=== PATIENT | male | born 1935 | race Caucasian/White ===

== ENCOUNTER → 2020-03-10 09:24 | Outpatient (CLI) | payer MEDICARE ==
[2014-02-18 07:44] VITALS: BMI 31.5
[~2020-03-10 09:24] MED LIST: GLUCOPHAGE500 MG; HUMULIN N100 U/ML INJ; HUMULIN R100 U/ML; HUMULIN R100 U/ML INJ; NORCO 10/325 TA1 TA1 PO
--- NOTE | 2020-03-13 08:56 | EC ---
PATIENT:GELY DUMONT DATE OF SERVICE: 03/10/20 SEX: M MEDICAL RECORD: [id number] DATE OF : 37 LOCATION[facility] AGE OF PATIENT: 85 ADMISSION DATE: 03/10/20 REFERRING PHYSICIAN: INTERPRETING PHYSICIAN: SURAJ GORMAN MD ECHOCARDIOGRAM REPORT ECHO CHARGES 4 ECHO COMPLETE Date: 03/10/20 CLINICAL DIAGNOSIS: HTN/CAD ECHOCARDIOGRAPHIC MEASUREMENTS (adult normal given) AC root (d.<3.7cm) 3.7 cm LV Septum d (<1.2 cm> 1.3 cm Valve Excursion 1.5 cm LV Septum (systole) 1.7 cm Left Atria (s.<4.0cm> 3.9 cm LVPW d(<1.2cm) 1.5 cm RV (d.<2.3cm) 3.8 cm LVPW (sytole) 1.7 cm LV diastole(<5.6CM) 5.3 cm MV E-F(>70mm/sec) cm LV systole 3.6 cm LVOT Diameter 1.7 cm MV exc.(>10mm) 0.90 cm Est.ejection fraction (50-75%) % DOPPLER: LVIT cm/sec A 89.0 cm/sec E 58.0 cm/sec LA cm/sec RVSP 34 mmHg LVOT 132 cm/sec AOP1/2T m/s Asc. Ao 184 cm/sec RVOT 88 cm/sec RA cm/sec PA 159 cm/sec AV Gradient Peak 13.56mmHg AV Mean 7.78 mmHg AV Area 1.6 cm MV Gradient Peak 7.07 mmHg MV Mean 2.27 mmHg MV Area cm COMMENTS: Bookbinder Apprentice: 2 RADHA BLEDSOE Airline Reservationist: 3 Dr. Santana TAPE# PACS Pericardial Effusion N DATE OF SERVICE: Adequate 2D, color flow imaging, spectral Doppler, and M-Mode. Mild LVH. LV internal dimensions are normal. Wall motion is normal. EF is greater than or equal to 55%. Aortic valve is sclerotic with minimal elevated velocities. Peak gradient of 30 mmHg putting this is a mild range. Left atrium was normal at 3.9 cm. Mitral valve shows no prolapse. Trivial MR. Right-sided grossly normal. Trivial TR. ECHOCARDIOGRAM REPORT [id number] GELY DUMONT TRANSINT:[id number] Voice Confirmation ID: [id number] DOCUMENT ID: [id number] SURAJ GORMAN MD at 0856 CC: [id number] DICTATION DATE: 03/10/201422 STRUCTURAL STEEL ENGINEER: 03/10/201926 DEP CLI 03/10/20 [place] [id number] [place] [id number]
== END | disposition home or self-care (01) ==
LOC: D.HCCECHO 09:24
PROVIDERS: ATTEND Internal Medicine Interventional Cardiology
DX: I10 Essential (primary) hypertension (principal)

== ENCOUNTER 2021-01-01 10:59 | Inpatient (IN) | payer MEDICARE ==
[2021-01-01] VITALS (10 sets, daily range): BP systolic 121–167; BP diastolic 62–94; BMI 26.2
[~2021-01-01] VITALS: Ht 175.3 cm; Wt 86.8 kg
[2021-01-01 11:40] LABS: BASOPHILS 0.6 % (0-2); EOSINOPHILS 1.3 % (0-7); HEMATOCRIT 41.5 % (42.0-54.0); HEMOGLOBIN 14.4 g/dL (13.5-17.5); IMMATURE GRANULOCYTES 0.1 % (0-5); LYMPHOCYTE ABS# 1.83 10x3/uL (1.32-3.57); LYMPHOCYTES 23.5 % (15-50); MCH 29.1 pg (26.0-34.0); MCHC 34.7 g/dL (31.0-37.0); MCV 83.8 fL (80.0-100.0); MEAN PLATELET VOLUME 13.3 fL (7.4-10.4); MONOCYTES 4.5 % (2-11); NEUTROPHIL ABS# 5.44 10x3/uL (1.78-5.38); PLATELET COUNT 200 10x3/uL (130-400); RBC 4.95 10x6/uL (4.20-6.10); WBC 7.8 10x3/uL (4.8-10.8)
[2021-01-01 11:54] LABS: BILIRUBIN - TOTAL 1.14 mg/dL (0.2-1.3); CARBON DIOXIDE 23.5 mmol/L (21.0-32.0); CREATININE - SERUM 1.6 mg/dL (0.6-1.3); POTASSIUM - SERUM 4.9 mmol/L (3.5-5.1); PROTEIN - SERUM 7.4 g/dL (6.4-8.2)
[2021-01-01 11:56] LABS: ANION GAP 16.4 mmol/L (8-16)
[2021-01-01 13:26] LABS: BILIRUBIN NEGATIVE (NEGATIVE); KETONE MODERATE mg/dL (NEGATIVE); NITRITE NEGATIVE (NEGATIVE); UROBILINOGEN NORMAL mg/dL (< 2)
[2021-01-01 16:31] LABS: ANION GAP 15.2 mmol/L (8-16); CALCIUM 9.3 mg/dL (8.5-10.1); CARBON DIOXIDE 27.2 mmol/L (21.0-32.0); CREATININE - SERUM 1.4 mg/dL (0.6-1.3)
[2021-01-01 16:37] LABS: POTASSIUM - SERUM 3.4 mmol/L (3.5-5.1)
--- NOTE | 2021-01-01 16:50 | NUR ---
REC'D PT TO ICU FROM ER. INSULIN GTT INFUSING AT 17CC/HR. FSBS NOW 201. MULTIPLIER USED DKA PROTOCOL. DEC GTT TO 4.2. BMP DRAWN. NS AT 125. PT CONFUSED AND GEENA AT LINES AND IV. SOFT BUE RESTRAINTS ORDERED. ALL MONITORING EQUIPMENT ATTACHED AND ALARMS SET. VSS. NSR ON CM.
[2021-01-01 20:08] LABS: CALCIUM 9.2 mg/dL (8.5-10.1); CARBON DIOXIDE 26.8 mmol/L (21.0-32.0); CREATININE - SERUM 1.1 mg/dL (0.6-1.3); POTASSIUM - SERUM 3.8 mmol/L (3.5-5.1)
[2021-01-02] VITALS (20 sets, daily range): BP systolic 98–147; BP diastolic 54–88; Ht 175.3 cm; Wt 86.8 kg
[2021-01-02 03:54] LABS: BASOPHILS 0.6 % (0-2); EOSINOPHILS 3.3 % (0-7); HEMATOCRIT 36.9 % (42.0-54.0); HEMOGLOBIN 12.7 g/dL (13.5-17.5); IMMATURE GRANULOCYTES 0.1 % (0-5); LYMPHOCYTE ABS# 2.92 10x3/uL (1.32-3.57); LYMPHOCYTES 36.6 % (15-50); MCH 28.3 pg (26.0-34.0); MCHC 34.4 g/dL (31.0-37.0); MCV 82.2 fL (80.0-100.0); MEAN PLATELET VOLUME 12.7 fL (7.4-10.4); MONOCYTES 7.6 % (2-11); NEUTROPHIL ABS# 4.13 10x3/uL (1.78-5.38); NEUTROPHILS 51.8 % (40-80); PLATELET COUNT 192 10x3/uL (130-400); RBC 4.49 10x6/uL (4.20-6.10); RDW 11.7 % (11.5-14.5)
[2021-01-02 04:26] LABS: ALBUMIN 3.2 g/dL (3.4-5.0); ANION GAP 8.8 mmol/L (8-16); BILIRUBIN - TOTAL 0.76 mg/dL (0.2-1.3); CALCIUM 8.3 mg/dL (8.5-10.1); CARBON DIOXIDE 27.7 mmol/L (21.0-32.0); CREATININE - SERUM 1.1 mg/dL (0.6-1.3); MAGNESIUM - SERUM 1.8 mg/dL (1.8-2.4); PHOSPHOROUS 2.3 mg/dL (2.5-4.9); POTASSIUM - SERUM 3.5 mmol/L (3.5-5.1); PROTEIN - SERUM 6.1 g/dL (6.4-8.2)
--- NOTE | 2021-01-02 04:53 | NUR ---
PATIENT OFF INSULIN DRIP SINCE 2029, TOLERATING ORAL FLUIDS. INCONTIENT, LARGE AMOUNT OF JAMIE URINE VOID, INCONTINENCE BRIEF CHANGED.
--- NOTE | 2021-01-02 07:30 | NUR ---
PT LAYING IN BED RESTING, DENIES PAIN AT THIS TIME, FORGETFULL AT TIMES, NO NEEDS VOICED, WILL MONITOR
--- NOTE | 2021-01-02 08:10 | NUR ---
BREAKFAST TRAY SERVED, PT SITTING UP FEEDING SELF
[2021-01-02 10:43] LABS: CALC OSMOLALITY 278 mosm/kg (275-300); CALCIUM 9.3 mg/dL (8.5-10.1); CARBON DIOXIDE 27.9 mmol/L (21.0-32.0); CHLORIDE - SERUM 101 mmol/L (98-107); GLUCOSE 221 mg/dL (74-106); POTASSIUM - SERUM 4.3 mmol/L (3.5-5.1); SODIUM 135 mmol/L (136-145); UREA NITROGEN 17 mg/dL (7-18); eGFR NON AFRICAN AMERICAN 76 mL/min (90-120)
--- NOTE | 2021-01-02 12:00 | NUR ---
PT SITTING UP IN CHAIR EATING LUNCH, TOLERATING WELL, CALL LIGHT IN REACH, WILL MONITOR
[2021-01-02 13:46] LABS: ANION GAP 13.6 mmol/L (8-16); CALCIUM 8.4 mg/dL (8.5-10.1); CARBON DIOXIDE 26.4 mmol/L (21.0-32.0); CREATININE - SERUM 1.2 mg/dL (0.6-1.3)
[2021-01-02 16:33] LABS: ANION GAP 11.9 mmol/L (8-16); CALCIUM 8.7 mg/dL (8.5-10.1); CARBON DIOXIDE 27.7 mmol/L (21.0-32.0); CREATININE - SERUM 1.1 mg/dL (0.6-1.3); POTASSIUM - SERUM 4.6 mmol/L (3.5-5.1)
--- NOTE | 2021-01-02 16:45 | NUR ---
DINNER TRAY SERVED, SITTING UP EATING, CALL LIGHT IN REACH, WILL MONITOR
[2021-01-02 20:40] LABS: CALCIUM 8.4 mg/dL (8.5-10.1); CARBON DIOXIDE 26.8 mmol/L (21.0-32.0); CREATININE - SERUM 1.3 mg/dL (0.6-1.3); POTASSIUM - SERUM 4.8 mmol/L (3.5-5.1)
[2021-01-03] VITALS (15 sets, daily range): BP systolic 116–165; BP diastolic 54–92
[2021-01-03 04:51] LABS: BASOPHILS 0.6 % (0-2); EOSINOPHILS 5.1 % (0-7); HEMATOCRIT 37.4 % (42.0-54.0); HEMOGLOBIN 12.7 g/dL (13.5-17.5); IMMATURE GRANULOCYTES 0.2 % (0-5); LYMPHOCYTE ABS# 3.86 10x3/uL (1.32-3.57); MCH 28.2 pg (26.0-34.0); MCV 82.9 fL (80.0-100.0); MEAN PLATELET VOLUME 12.2 fL (7.4-10.4); MONOCYTES 5.8 % (2-11); NEUTROPHIL ABS# 3.39 10x3/uL (1.78-5.38); NEUTROPHILS 41.3 % (40-80); PLATELET COUNT 177 10x3/uL (130-400); RBC 4.51 10x6/uL (4.20-6.10); RDW 11.7 % (11.5-14.5); WBC 8.2 10x3/uL (4.8-10.8)
[2021-01-03 05:07] LABS: CALCIUM 8.2 mg/dL (8.5-10.1); CARBON DIOXIDE 27.6 mmol/L (21.0-32.0); CHLORIDE - SERUM 105 mmol/L (98-107); SODIUM 138 mmol/L (136-145); UREA NITROGEN 17 mg/dL (7-18)
[2021-01-03 05:09] LABS: CALC OSMOLALITY 275 mosm/kg (275-300); CREATININE - SERUM 0.9 mg/dL (0.6-1.3); GLUCOSE 67 mg/dL (74-106); PHOSPHOROUS 3.3 mg/dL (2.5-4.9); POTASSIUM - SERUM 3.7 mmol/L (3.5-5.1); eGFR NON AFRICAN AMERICAN 85 mL/min (90-120)
--- NOTE | 2021-01-03 11:09 | NUR ---
Nutrition Consult/Follow-up: Received consult for diabetic education. Pt was educated yesterday; written information has been provided as well. No questions this AM. Good appetite/PO intake. Denies N/V/C/D. Diet: Diabetic PO intake: 50-75% Wt: 191# (01/03); 177.4# (01/01) Last BM: 01/02 Labs noted: Glu 67, POC Glu 162, A1c 12.9, Ca 8.2, Alb 3.2 Meds noted: Pepcid, Humalog, NS @ 100, electrolyte protocol -Education on carb consistent diet has been provided. Pt v/u. -Encourage PO intake and honor food preferences within diet restrictions. -Monitor wt. -RD follow-up: 01/04
[2021-01-03 12:44] LABS: CALCIUM 8.4 mg/dL (8.5-10.1); CHLORIDE - SERUM 99 mmol/L (98-107); SODIUM 131 mmol/L (136-145); UREA NITROGEN 16 mg/dL (7-18); eGFR NON AFRICAN AMERICAN 76 mL/min (90-120)
[2021-01-03 12:47] LABS: CALC OSMOLALITY 281 mosm/kg (275-300)
[2021-01-03 12:48] LABS: GLUCOSE 430 mg/dL (74-106)
--- NOTE | 2021-01-03 14:07 | NUR ---
REHAB PRESCREENING Rehab referral received and chart reviewed. This patient is a good candidate for acute inpatient rehab. His insurance provider requires prior authorization. He will need and OT evaluation ordered and completed in order to begin this pre-auth. Rehab will continue to follow. Thank you for this referral! Nichelle Ray, DINING ROOM BUSSER Rehab PD
--- NOTE | 2021-01-03 16:28 | NUR ---
Pt transfered to room 2206, report called to nurse and given at notice of Pt in room at bedside.
[2021-01-03 17:06] LABS: CALC OSMOLALITY 279 mosm/kg (275-300); CALCIUM 8.4 mg/dL (8.5-10.1); CARBON DIOXIDE 26.2 mmol/L (21.0-32.0); CHLORIDE - SERUM 98 mmol/L (98-107); POTASSIUM - SERUM 4.6 mmol/L (3.5-5.1); SODIUM 131 mmol/L (136-145); UREA NITROGEN 16 mg/dL (7-18); eGFR NON AFRICAN AMERICAN 76 mL/min (90-120)
[2021-01-03 17:18] LABS: GLUCOSE 381 mg/dL (74-106)
--- NOTE | 2021-01-03 18:26 | NUR ---
PATIENT ARRIVED TO FLOOR AT 1630 VS WNL, AAO, WILL CONTINUE TO MONITOR
[2021-01-03 22:38] LABS: CALCIUM 8.3 mg/dL (8.5-10.1); CARBON DIOXIDE 25.1 mmol/L (21.0-32.0); CREATININE - SERUM 1.1 mg/dL (0.6-1.3); POTASSIUM - SERUM 4.1 mmol/L (3.5-5.1)
--- NOTE | 2021-01-03 23:26 | NUR ---
ON ENTERING ROOM DURING WALKING ROUNDS CHGE OF SHIFT STATES ITS ABOUT TIME SOMEONE CAME IN HERE. WHAT YOU ARE YPU DOING OUT THERE GOOFING OFF EXPLAINED CHANGING SHIFTS STATES GUESS THAT IS GOOD EXCUSE ANY SCD'S ON INCENTIVE SPIROMETER AT BEDSIDE. WILL CONTINUE TO MONITOR FOR ANY CHGES AND FOLLOW CURRENT PLAN OF CARE.2199) JOAQUIN LEPE APN HERE FSBS 335.SLIDING SCALE CHGED TO HIGH SCALE WITH HUMALOG 20UNITS GIVEN ACCORDING TO SL.SCALE WILL CONTINUE TO MONITOR FOR ANY FURTHER CHGES AND FOLLOW CURRENT PLAN OF CARE
[2021-01-04 00:27] VITALS: BP 152/70
--- NOTE | 2021-01-04 03:41 | NUR ---
I have reviewed this patient and I concur with the Shift Assessment completed by the Licensed Practical Nurse today this shift.
[2021-01-04 04:00] VITALS: BP 168/82
[2021-01-04 06:15] LABS: BASOPHILS 0.5 % (0-2); EOSINOPHILS 5.6 % (0-7); HEMATOCRIT 37.2 % (42.0-54.0); HEMOGLOBIN 12.7 g/dL (13.5-17.5); IMMATURE GRANULOCYTES 0.2 % (0-5); LYMPHOCYTE ABS# 2.45 10x3/uL (1.32-3.57); LYMPHOCYTES 38.9 % (15-50); MCH 28.1 pg (26.0-34.0); MCHC 34.1 g/dL (31.0-37.0); MCV 82.3 fL (80.0-100.0); MEAN PLATELET VOLUME 12.9 fL (7.4-10.4); MONOCYTES 8.3 % (2-11); NEUTROPHIL ABS# 2.94 10x3/uL (1.78-5.38); NEUTROPHILS 46.5 % (40-80); PLATELET COUNT 185 10x3/uL (130-400); RBC 4.52 10x6/uL (4.20-6.10); RDW 11.8 % (11.5-14.5); WBC 6.3 10x3/uL (4.8-10.8)
[2021-01-04 06:31] LABS: CALCIUM 8.4 mg/dL (8.5-10.1); CARBON DIOXIDE 25.7 mmol/L (21.0-32.0); CHLORIDE - SERUM 104 mmol/L (98-107); MAGNESIUM - SERUM 1.8 mg/dL (1.8-2.4); PHOSPHOROUS 3.7 mg/dL (2.5-4.9); SODIUM 137 mmol/L (136-145); UREA NITROGEN 12 mg/dL (7-18)
[2021-01-04 06:41] LABS: CALC OSMOLALITY 275 mosm/kg (275-300); CREATININE - SERUM 0.8 mg/dL (0.6-1.3); GLUCOSE 135 mg/dL (74-106); eGFR NON AFRICAN AMERICAN > 90 mL/min (90-120)
[2021-01-04 08:12] VITALS: BP 174/82
[2021-01-04 12:24] VITALS: BP 161/81
--- NOTE | 2021-01-04 13:21 | NUR ---
Nutrition follow-up: Just out of ICU RDN instructed pt on consistent CHO diet on admit Diet order: consistent CHO PO intake ~75% of meals Labs reviewed Wt: 191# Glucose under good control RDN will follow-up: 01/09/21
[2021-01-04 13:29] LABS: CALC OSMOLALITY 273 mosm/kg (275-300); CALCIUM 8.5 mg/dL (8.5-10.1); CARBON DIOXIDE 22.9 mmol/L (21.0-32.0); CHLORIDE - SERUM 100 mmol/L (98-107); CREATININE - SERUM 0.8 mg/dL (0.6-1.3); POTASSIUM - SERUM 4.4 mmol/L (3.5-5.1); SODIUM 131 mmol/L (136-145); UREA NITROGEN 12 mg/dL (7-18); eGFR NON AFRICAN AMERICAN > 90 mL/min (90-120)
[2021-01-04 13:31] LABS: GLUCOSE 301 mg/dL (74-106)
[2021-01-04 17:04] VITALS: BP 154/80
[2021-01-04 17:15] LABS: CALC OSMOLALITY 274 mosm/kg (275-300); CALCIUM 8.9 mg/dL (8.5-10.1); CARBON DIOXIDE 25.1 mmol/L (21.0-32.0); CHLORIDE - SERUM 102 mmol/L (98-107); POTASSIUM - SERUM 4.2 mmol/L (3.5-5.1); SODIUM 134 mmol/L (136-145); UREA NITROGEN 12 mg/dL (7-18); eGFR NON AFRICAN AMERICAN 76 mL/min (90-120)
[2021-01-04 17:31] LABS: GLUCOSE 222 mg/dL (74-106)
[2021-01-04 20:07] LABS: ANION GAP 11.9 mmol/L (8-16); CALCIUM 8.6 mg/dL (8.5-10.1); CARBON DIOXIDE 24.3 mmol/L (21.0-32.0); CREATININE - SERUM 1.1 mg/dL (0.6-1.3); POTASSIUM - SERUM 4.2 mmol/L (3.5-5.1)
[2021-01-04 20:18] VITALS: BP 128/74
--- NOTE | 2021-01-05 00:27 | NUR ---
REC'D CHGE OF SHIFT WALKING ROUNDS.IN BED DENIES ANY DISCOMFORT AT PRESENT TIME WILL CONTINUE TO MONITOOR AND FOLLOW CURRENT PLAN OF CARE
[2021-01-05 00:29] VITALS: BP 130/72
[2021-01-05 04:00] VITALS: BP 124/70
[2021-01-05 06:59] LABS: BASOPHILS 1.2 % (0-2); EOSINOPHILS 5.8 % (0-7); HEMATOCRIT 35.6 % (42.0-54.0); HEMOGLOBIN 12.3 g/dL (13.5-17.5); IMMATURE GRANULOCYTES 0.2 % (0-5); LYMPHOCYTE ABS# 2.13 10x3/uL (1.32-3.57); LYMPHOCYTES 37.5 % (15-50); MCH 28.6 pg (26.0-34.0); MCHC 34.6 g/dL (31.0-37.0); MCV 82.8 fL (80.0-100.0); MEAN PLATELET VOLUME 12.9 fL (7.4-10.4); MONOCYTES 7.9 % (2-11); NEUTROPHIL ABS# 2.69 10x3/uL (1.78-5.38); NEUTROPHILS 47.4 % (40-80); PLATELET COUNT 178 10x3/uL (130-400); RDW 11.9 % (11.5-14.5); WBC 5.7 10x3/uL (4.8-10.8)
[2021-01-05 07:29] LABS: CALC OSMOLALITY 276 mosm/kg (275-300); CALCIUM 8.9 mg/dL (8.5-10.1); CHLORIDE - SERUM 106 mmol/L (98-107); CREATININE - SERUM 0.9 mg/dL (0.6-1.3); GLUCOSE 94 mg/dL (74-106); MAGNESIUM - SERUM 1.7 mg/dL (1.8-2.4); POTASSIUM - SERUM 3.9 mmol/L (3.5-5.1); SODIUM 139 mmol/L (136-145); UREA NITROGEN 11 mg/dL (7-18); eGFR NON AFRICAN AMERICAN 85 mL/min (90-120)
--- NOTE | 2021-01-05 08:06 | NUR ---
PT EASILY AWAKENED. PT STATED HE DID NOT KNOW WHICH HOSPITAL HE WAS IN. WAS EASILY ORIENTED TO LOCATION. CL IN REACH. NO NEEDS AT THIS TIME. WCTM
--- NOTE | 2021-01-05 08:13 | NUR ---
SPOKE WITH COOK ITALIAN STYLE FOODDELROY ANGEL WHO STATED THAT PT HAD CALLED HIM AND SAID PT WAS READY TO LEAVE. SPOKE WITH PT WHO IS DRESSED. REMOVED HIS IV OUT OF HIS LEFT FOREARM HIMSELF. PT STATES HE IS READY TO GO AND THAT WE NEED TO GET SOMEONE WITH SOME AUTHORITY AROUND HERE. I TOLD PASTOR HILL THAT WE DO NOT HAVE DISCHARGE PAPERWORK AT THIS TIME. CL IN REACH. QUESTIONS ANSWERED TO WHEN BREAKFAST WILL BE. TM
[2021-01-05 08:31] VITALS: BP 113/78
--- NOTE | 2021-01-05 10:49 | NUR ---
PT DRINKING COFFEE. READY TO GO. I TOLD HIM THAT CM HAS HIM DOWN FOR REHAB. PT WAS ABLE TO ONLY WALK 22 FT ON RECORD. PT WANTS TO FINISH HIS COFFEE BEFORE WE GO FOR A WALK. CL IN REACH. WCTM
--- NOTE | 2021-01-05 11:55 | NUR ---
REHAB PRESCREENING Auth started yesterday Ref ID [id number]. I followed up on auth with call ref #[id number]. [employer] provider advocate Laura to expedite decision. Awaiting auth determination at this time. Nichelle Ray, BUSINESS OFFICE ASSISTANT Rehab PD
[2021-01-05 11:56] LABS: ANION GAP 15.9 mmol/L (8-16); CALCIUM 9.2 mg/dL (8.5-10.1); POTASSIUM - SERUM 3.9 mmol/L (3.5-5.1)
[2021-01-05 11:57] LABS: CREATININE - SERUM 1.2 mg/dL (0.6-1.3)
[2021-01-05 12:52] VITALS: BP 126/69
--- NOTE | 2021-01-05 14:17 | NUR ---
PASTOR HILL CALLED ME. STATED PT READY TO LEAVE AND HAS CALLED HIM TO COME AND GET HIM. I TOLD PT THAT HE WASN'T DISCHARGED YET. HE VOICED UNDERSTANDING BUT STATED HE WAS READY TO LEAVE. THAT HE HAD TO CHECK HIS MAIL THAT THE STORE OPERATIONS MANAGER TOLD HIM THERE WAS AN 800 $ BILL FROM INSURANCE. I TOLD PT THAT IF HE LEFT AMA THEN INSURANCE WOULD POSSIBLY NOT PAY THE BILL. PT STATED AGAIN THAT HE NEEDED HIS MAIL. I SPOKE WITH PASTOR HILL THAT STATED HE WOULD BE ABLE TO BRING HIS MAIL UP. PT AGREEABLE WITH THAT. WCTM
--- NOTE | 2021-01-05 14:55 | NUR ---
OT NOTE: PT COMPLETED ADL MOB WITH CGA. PT COMPLETED UB DRESSING WITH MIN A. PT COMPLETED FACE HYGIENE WITH SETUP. PT COMPLETED MICHAEL SOCKS WITH CGA. 036-3 THANK YOU,KIM CARRANZA
--- NOTE | 2021-01-05 15:01 | MORECARE ---
CASE MANAGEMENT DISCHARGE SUMMARY PATIENT: GELY DUMONT UNIT: [id number] ADM DATE: 01/01/21 AGE: 85 : 36 SEX: M ROOM/BED: D.2206 AUTHOR: ESTELA LOCK PHYSICIAN: REFERRING PHYSICIAN: MIMI MICHAUD MD DATE OF SERVICE: 01/05/21 Discharge Plan Patient Name: GELY DUMONT [facility] [facility] 1935 Planned Disposition: Inpatient Rehab Anticipated Discharge Date: Discharge Date: Expected LOS: Initial Reviewer: [email or web address] Initial Review Date: 01/05/2021 Generated: 01/05/21 4:01 pm Patient Name: GELY DUMONT Page [id number] at 1501 All edits/amendments must be made on the electronic document DICTATION DATE: 01/05/21 1501 ARTIFICIAL INTELLIGENCE SPECIALIST: MEMO 01/05/21 1501 RPT#: [id number] DC DATE: STATUS: ADM IN [facility] [address] [place] [address] END OF REPORT
--- NOTE | 2021-01-05 15:31 | MORECARE ---
CASE MANAGEMENT DISCHARGE SUMMARY PATIENT: GELY DUMONT UNIT: [id number] ADM DATE: 01/01/21 AGE: 85 : 36 SEX: M ROOM/BED: D.2206 AUTHOR: ESTELA LOCK PHYSICIAN: REFERRING PHYSICIAN: MIMI MICHAUD MD DATE OF SERVICE: 01/05/21 Discharge Plan Patient Name: GELY DUMONT [facility] [facility] 1935 Planned Disposition: Inpatient Rehab Anticipated Discharge Date: Discharge Date: Expected LOS: Initial Reviewer: [email or web address] Initial Review Date: 01/05/2021 Generated: 01/05/21 4:30 pm DCPIA - Discharge Planning Initial Assessment Updated by [email or web address]: Paula Montesinos on 01/05/21 3:29 pm * Is the patient Alert and Oriented? Yes * How many steps to enter\exit or inside your home? * PCP Amy * Pharmacy [facility] [address] * Preadmission Environment Home Alone * ADLs Independent * Equipment Cane Glucometer * List name and contact numbers for known caregivers / representatives who currently or will assist patient after discharge: Pastor Pantera, * Verbal permission to speak to the caregivers and representatives has been obtained from the patient. Yes * Community resources currently utilized None * Additional services required to return to the preadmission environment? Yes * Can the patient safely return to the preadmission environment? Yes * Has this patient been hospitalized within the prior 30 days at any hospital? No Last DP export: 01/05/21 2:01 p Patient Name: GELY DUMONT Page 00593 at 1531 All edits/amendments must be made on the electronic document DICTATION DATE: 01/05/21 153 SURVEYOR OIL WELL DIRECTIONAL: MEMO 01/05/211529 RPT#: [id number] DC DATE: STATUS: ADM IN [facility] [address] [place] [address] END OF REPORT
--- NOTE | 2021-01-05 15:42 | MORECARE ---
CASE MANAGEMENT DISCHARGE SUMMARY PATIENT: GELY DUMONT UNIT: [id number] ADM DATE: 01/01/21 AGE: 85 : 36 SEX: M ROOM/BED: D.2206 AUTHOR: HAYDEDOC PHYSICIAN: REFERRING PHYSICIAN: MIMI MICHAUD MD DATE OF SERVICE: 01/05/21 Discharge Plan Patient Name: GELY DUMONT Facility: [facility]:[place] : 1935 Planned Disposition: Inpatient Rehab Anticipated Discharge Date: Discharge Date: Expected LOS: Initial Reviewer: [email or web address] Initial Review Date: 01/05/2021 Generated: 01/05/21 4:41 pm Comments DCP- Discharge Planning Updated by [email or web address]: Paula Montesinos on 01/05/21 2:[address] Patient Name: GELY DUMONT Admission Status: ER Accout number: [id number] Admission Date: 01-01-2021 : 1935 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 CM discussed availability of home health, rehab services, and medical equipment. Patient states he wants to DC to home. Patient lives at home alone. States home environment is safe. CM informed patient that physical therapy has recommended inpatient rehab. Patient in agreement with plan to DC to [facility]. MINNA signed. Copy in chart. Patient denies any other needs at this time. CM obtained order for OT eval. Notified Tory Dennis in therapy department. CM notified Nichelle Delatorre at [facility] of referral. CM will continue to follow and assist as needed with discharge planning needs. Senior Software Quality Engineer: Paula Montesinos DCPIA - Discharge Planning Initial Assessment Updated by [email or web address]: Paula Montesinos on 01/05/21 3:29 pm * Is the patient Alert and Oriented? Yes * How many steps to enter\exit or inside your home? * PCP Amy * Pharmacy [address] * Preadmission Environment Home Alone * ADLs Independent * Equipment Cane Glucometer * List name and contact numbers for known caregivers / representatives who currently or will assist patient after discharge: Pastor Pantera, * Verbal permission to speak to the caregivers and representatives has been obtained from the patient. Yes * Community resources currently utilized None * Additional services required to return to the preadmission environment? Yes * Can the patient safely return to the preadmission environment? Yes * Has this patient been hospitalized within the prior 30 days at any hospital? No Last DP export: 01/05/21 2:31 p Patient Name: GELY DUMONT Page 66731 at 1542 All edits/amendments must be made on the electronic document DICTATION DATE: 01/05/211541 TICKET PRINTER AND TAGGER: MEMO 01/05/211541 RPT#: [id number] DC DATE: STATUS: ADM IN [facility] [address] [place] [address] END OF REPORT
[2021-01-05 16:58] VITALS: BP 109/67
[2021-01-05 17:04] LABS: ANION GAP 12.2 mmol/L (8-16); CALCIUM 9.2 mg/dL (8.5-10.1); CARBON DIOXIDE 24.1 mmol/L (21.0-32.0); CREATININE - SERUM 1.3 mg/dL (0.6-1.3); POTASSIUM - SERUM 4.3 mmol/L (3.5-5.1)
--- NOTE | 2021-01-05 17:16 | NUR ---
PT SITTING IN CHAIR. CL IN REACH. NO NEEDS AT THIS TIME. WCTM
[2021-01-05 20:00] VITALS: BP 148/76
--- NOTE | 2021-01-05 20:00 | NUR ---
ALERT RESTING IN BED DENIES PAIN OR NEEDS AT THIS TIME, SEE SHIFT ASSESSMENT CALL LIGHT IN REACH, IV RESTARTED TO LEFT FA X 1 ATTEMPT
[2021-01-05 20:54] LABS: ANION GAP 11.7 mmol/L (8-16); CALCIUM 9.1 mg/dL (8.5-10.1); CARBON DIOXIDE 26.2 mmol/L (21.0-32.0); CREATININE - SERUM 1.2 mg/dL (0.6-1.3); POTASSIUM - SERUM 3.9 mmol/L (3.5-5.1)
[2021-01-06] VITALS: BP 129/58
[2021-01-06 04:00] VITALS: BP 112/75
[2021-01-06 06:41] LABS: BASOPHILS 0.4 % (0-2); EOSINOPHILS 1.9 % (0-7); HEMATOCRIT 36.2 % (42.0-54.0); HEMOGLOBIN 12.5 g/dL (13.5-17.5); IMMATURE GRANULOCYTES 0.1 % (0-5); LYMPHOCYTE ABS# 2.57 10x3/uL (1.32-3.57); LYMPHOCYTES 36.8 % (15-50); MCH 28.4 pg (26.0-34.0); MCHC 34.5 g/dL (31.0-37.0); MCV 82.3 fL (80.0-100.0); MEAN PLATELET VOLUME 12.9 fL (7.4-10.4); MONOCYTES 7.2 % (2-11); NEUTROPHIL ABS# 3.75 10x3/uL (1.78-5.38); NEUTROPHILS 53.6 % (40-80); PLATELET COUNT 199 10x3/uL (130-400)
[2021-01-06 07:03] LABS: CALC OSMOLALITY 277 mosm/kg (275-300); CALCIUM 9.1 mg/dL (8.5-10.1); CARBON DIOXIDE 25.6 mmol/L (21.0-32.0); CHLORIDE - SERUM 104 mmol/L (98-107); MAGNESIUM - SERUM 1.9 mg/dL (1.8-2.4); PHOSPHOROUS 4.1 mg/dL (2.5-4.9); POTASSIUM - SERUM 3.9 mmol/L (3.5-5.1); SODIUM 138 mmol/L (136-145); UREA NITROGEN 13 mg/dL (7-18); eGFR NON AFRICAN AMERICAN 76 mL/min (90-120)
[2021-01-06 07:04] LABS: GLUCOSE 143 mg/dL (74-106)
--- NOTE | 2021-01-06 08:11 | NUR ---
PT LINENS CHANGED PER CHEMICAL ENGINEERING PROFESSOR MARQUEZ. CL AND TV FIXED. PLUG WAS OUT OF THE WALL. NO FURTHER NEEDS AT THIS TIME. WCTM
[2021-01-06 08:45] VITALS: BP 133/76
--- NOTE | 2021-01-06 10:21 | NUR ---
PT HAD A SHAVE BY SCHOOL INSPECTOR AND MORE COFFEE REQUESTED.
[2021-01-06 12:18] VITALS: BP 149/79
[2021-01-06 12:24] LABS: ANION GAP 14.5 mmol/L (8-16); CALCIUM 8.8 mg/dL (8.5-10.1); CARBON DIOXIDE 24.1 mmol/L (21.0-32.0); CREATININE - SERUM 1.2 mg/dL (0.6-1.3)
--- NOTE | 2021-01-06 12:30 | NUR ---
PASTOR HILL IN ROOM. QUESTIONS ANSWERED TO WHEN PT WILL LEAVE. STATES THAT HE CAN GO BY PT HOUSE AND GET PT CHECK BOOK SO HE CAN PAY BILLS. CL IN REACH. UPDATES GIVEN. WCTM
[2021-01-06 12:39] LABS: POTASSIUM - SERUM 4.6 mmol/L (3.5-5.1)
--- NOTE | 2021-01-06 13:47 | MORECARE ---
CASE MANAGEMENT DISCHARGE SUMMARY PATIENT: GELY DUMONT UNIT: [id number] ADM DATE: 01/01/21 AGE: 85 : 36 SEX: M ROOM/BED: D.2206 AUTHOR: HAYDEDOC PHYSICIAN: REFERRING PHYSICIAN: MIMI MICHAUD MD DATE OF SERVICE: 01/06/21 Discharge Plan Patient Name: GELY DUMONT Facility: [facility]:[place] : 1935 Planned Disposition: Inpatient Rehab Anticipated Discharge Date: Discharge Date: Expected LOS: Initial Reviewer: [email or web address] Initial Review Date: 01/05/2021 Generated: 01/06/21 2:46 pm Comments DCP- Discharge Planning Updated by [email or web address]: Palua Montesinos on 01/05/21 2:[address] Patient Name: GELY DUMONT Admission Status: ER Accout number: [id number] Admission Date: 01-01-2021 : 1935 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 CM discussed availability of home health, rehab services, and medical equipment. Patient states he wants to DC to home. Patient lives at home alone. States home environment is safe. CM informed patient that physical therapy has recommended inpatient rehab. Patient in agreement with plan to DC to [facility]. MINNA signed. Copy in chart. Patient denies any other needs at this time. CM obtained order for OT eval. Notified Tory Dennis in therapy department. CM notified Nichelle Delatorre at [facility] of referral. CM will continue to follow and assist as needed with discharge planning needs. Chief Accountant: Paula Montesinos DCPIA - Discharge Planning Initial Assessment Updated by [email or web address]: Paula Montesinos on 01/05/21 3:29 pm * Is the patient Alert and Oriented? Yes * How many steps to enter\exit or inside your home? * PCP Amy * Pharmacy [address] * Preadmission Environment Home Alone * ADLs Independent * Equipment Cane Glucometer * List name and contact numbers for known caregivers / representatives who currently or will assist patient after discharge: Pastor Pantera, * Verbal permission to speak to the caregivers and representatives has been obtained from the patient. Yes * Community resources currently utilized None * Additional services required to return to the preadmission environment? Yes * Can the patient safely return to the preadmission environment? Yes * Has this patient been hospitalized within the prior 30 days at any hospital? No Last DP export: 01/05/21 2:42 p Patient Name: GELY DUMONT Page [phone] at 1347 All edits/amendments must be made on the electronic document DICTATION DATE: 01/06/21 1346 HIGH SCHOOL ACADEMIC COACH: MEMO 01/06/21 1346 RPT#: [id number] DC DATE: STATUS: ADM IN [facility] [address] [place] [address] END OF REPORT
--- NOTE | 2021-01-06 13:55 | MORECARE ---
CASE MANAGEMENT DISCHARGE SUMMARY PATIENT: GELY DUMONT UNIT: [id number] ADM DATE: 01/01/21 AGE: 85 : 36 SEX: M ROOM/BED: D.2206 AUTHOR: HAYDE,DOC PHYSICIAN: REFERRING PHYSICIAN: MIMI MICHAUD MD DATE OF SERVICE: 01/06/21 Discharge Plan Patient Name: GELY DUMONT Facility: [facility]:[place] : 1935 Planned Disposition: Inpatient Rehab Anticipated Discharge Date: Discharge Date: Expected LOS: Initial Reviewer: [email or web address] Initial Review Date: 01/05/2021 Generated: 01/06/21 2:54 pm Comments DCP- Discharge Planning Updated by [email or web address]: Jayshree Tai on 01/06/21 12:[address] PATIENT HAS BEEN DENIED INPATIENT REHAB AND DOES NOT WANT TO GO TO A SKILLED FACILITY HE WOULD LIKE TO GO HOME WITH HOME HEALTH, HE DOES NOT CARE WHAT HOME HEALTH COMPANY HE USES LONG THEY TAKE HIS INSURANCE HE HAS A CANE AT THE BEDSIDE. DCP- Discharge Planning Updated by [email or web address]: Paula Montesinos on 01/05/21 2:[address] Patient Name: GELY DUMONT Admission Status: ER Accout number: [id number] Admission Date: 01-01-2021 : 1935 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 CM discussed availability of home health, rehab services, and medical equipment. Patient states he wants to DC to home. Patient lives at home alone. States home environment is safe. CM informed patient that physical therapy has recommended inpatient rehab. Patient in agreement with plan to DC to [facility]. MINNA signed. Copy in chart. Patient denies any other needs at this time. CM obtained order for OT eval. Notified Tory Dennis in therapy department. CM notified Nichelle Delatorre at [facility] of referral. CM will continue to follow and assist as needed with discharge planning needs. Preparer Samples And Repairs: Paula Montesinos DCPIA - Discharge Planning Initial Assessment Updated by [email or web address]: Paula Montesinos on 01/05/21 3:29 pm * Is the patient Alert and Oriented? Yes * How many steps to enter\exit or inside your home? * PCP Amy * Pharmacy [facility] [address] * Preadmission Environment Home Alone * ADLs Independent * Equipment Cane Glucometer * List name and contact numbers for known caregivers / representatives who currently or will assist patient after discharge: Pastor Pantera, * Verbal permission to speak to the caregivers and representatives has been obtained from the patient. Yes * Community resources currently utilized None * Additional services required to return to the preadmission environment? Yes * Can the patient safely return to the preadmission environment? Yes * Has this patient been hospitalized within the prior 30 days at any hospital? No External Providers External Provider: [facility] Next Contact Date: Service Request Date: Service Type: Resolution: Reviewer: Comments: Last DP export: 01/06/21 12:47 p Patient Name: GELY DUMONT Page [phone] at 1355 All edits/amendments must be made on the electronic document DICTATION DATE: 01/06/21 135 CUSTOMS OPENER VERIFIER PACKER: MEMO 01/06/21 135 RPT#: [id number] DC DATE: STATUS: ADM IN [facility] [address] [place] [address] END OF REPORT
--- NOTE | 2021-01-06 14:27 | MORECARE ---
CASE MANAGEMENT DISCHARGE SUMMARY PATIENT: GELY DUMONT UNIT: [id number] ADM DATE: 01/01/21 AGE: 85 : 36 SEX: M ROOM/BED: D.2206 AUTHOR: HAYDE,DOC PHYSICIAN: REFERRING PHYSICIAN: MIMI MICHAUD MD DATE OF SERVICE: 01/06/21 Discharge Plan Patient Name: GELY DUMONT Facility: [facility]:[place] : 1935 Planned Disposition: Inpatient Rehab Anticipated Discharge Date: Discharge Date: Expected LOS: Initial Reviewer: [email or web address] Initial Review Date: 01/05/2021 Generated: 01/06/21 3:26 pm Comments DCP- Discharge Planning Updated by [email or web address]: Jayshree Tai on 01/06/21 12:[address] PATIENT HAS BEEN DENIED INPATIENT REHAB AND DOES NOT WANT TO GO TO A SKILLED FACILITY HE WOULD LIKE TO GO HOME WITH HOME HEALTH, HE DOES NOT CARE WHAT HOME HEALTH COMPANY HE USES LONG THEY TAKE HIS INSURANCE HE HAS A CANE AT THE BEDSIDE. DCP- Discharge Planning Updated by [email or web address]: Paula Montesinos on 01/05/21 2:[address] Patient Name: GELY DUMONT Admission Status: ER Accout number: [id number] Admission Date: 01-01-2021 : 1935 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 CM discussed availability of home health, rehab services, and medical equipment. Patient states he wants to DC to home. Patient lives at home alone. States home environment is safe. CM informed patient that physical therapy has recommended inpatient rehab. Patient in agreement with plan to DC to [facility]. MINNA signed. Copy in chart. Patient denies any other needs at this time. CM obtained order for OT eval. Notified Tory Dennis in therapy department. CM notified Nichelle Delatorre at [facility] of referral. CM will continue to follow and assist as needed with discharge planning needs. Printed Products Assembler: Paula Montesinso DCPIA - Discharge Planning Initial Assessment Updated by [email or web address]: Paula Montesinos on 01/05/21 3:29 pm * Is the patient Alert and Oriented? Yes * How many steps to enter\exit or inside your home? * PCP Amy * Pharmacy [facility] [address] * Preadmission Environment Home Alone * ADLs Independent * Equipment Cane Glucometer * List name and contact numbers for known caregivers / representatives who currently or will assist patient after discharge: Pastor Pantera, * Verbal permission to speak to the caregivers and representatives has been obtained from the patient. Yes * Community resources currently utilized None * Additional services required to return to the preadmission environment? Yes * Can the patient safely return to the preadmission environment? Yes * Has this patient been hospitalized within the prior 30 days at any hospital? No Last DP export: 01/06/21 12:55 p Patient Name: GELY DUMONT Page [phone] at 1427 All edits/amendments must be made on the electronic document DICTATION DATE: 01/06/211425 CFA: MEMO 01/06/21 142 RPT#: [id number] CT DATE: STATUS: ADM IN [facility] [address] [place] [address] END OF REPORT
--- NOTE | 2021-01-06 15:32 | NUR ---
OT NOTE: PT COMPLETED ADL MOB WITH CGA. PT COMPLETED SITTING AT EOB WITH FUNCTIONAL TASKS WITH SPV. PT COMPLETED SHAVING WITH MIN A. PT COMPLETED FACE AND HAND HYGIENE WITH SETUP. [phone] THANK YOU,KIM CARRANZA
--- NOTE | 2021-01-06 15:32 | MORECARE ---
CASE MANAGEMENT DISCHARGE SUMMARY PATIENT: GELY DUMONT UNIT: [id number] ADM DATE: 01/01/21 AGE: 85 : 36 SEX: M ROOM/BED: D.2206 AUTHOR: HAYDE,DOC PHYSICIAN: REFERRING PHYSICIAN: MIMI MICHAUD MD DATE OF SERVICE: 01/06/21 Discharge Plan Patient Name: GELY DUMONT Facility: [facility]:[place] : 1935 Planned Disposition: Inpatient Rehab Anticipated Discharge Date: Discharge Date: Expected LOS: Initial Reviewer: [email or web address] Initial Review Date: 01/05/2021 Generated: 01/06/21 4:31 pm Comments DCP- Discharge Planning Updated by [email or web address]: Jayshree Tai on 01/06/21 2:[address] Patient will be discharged home tonight or tomorrow with home health when glucose is under 200. imm served and explained and kristin signed and placed in chart CM to follow as needed DCP- Discharge Planning Updated by [email or web address]: Jayshree Tai on 01/06/21 12:[address] PATIENT HAS BEEN DENIED INPATIENT REHAB AND DOES NOT WANT TO GO TO A SKILLED FACILITY HE WOULD LIKE TO GO HOME WITH HOME HEALTH, HE DOES NOT CARE WHAT HOME HEALTH COMPANY HE USES LONG THEY TAKE HIS INSURANCE HE HAS A CANE AT THE BEDSIDE. 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 CM discussed availability of home health, rehab services, and medical equipment. Patient states he wants to DC to home. Patient lives at home alone. States home environment is safe. CM informed patient that physical therapy has recommended inpatient rehab. Patient in agreement with plan to DC to [facility]. KRISTIN signed. Copy in chart. Patient denies any other needs at this time. CM obtained order for OT eval. Notified Tory Dennis in therapy department. CM notified Nichellefernando Delatorre at [facility] of referral. CM will continue to follow and assist as needed with discharge planning needs. Erp Manager: Paula Montesinos DCPIA - Discharge Planning Initial Assessment Updated by [email or web address]: Paula Montesinos on 01/05/21 3:29 pm * Is the patient Alert and Oriented? Yes * How many steps to enter\exit or inside your home? * PCP Amy * Pharmacy [facility] [address] * Preadmission Environment Home Alone * ADLs Independent * Equipment Cane Glucometer * List name and contact numbers for known caregivers / representatives who currently or will assist patient after discharge: Pastor Pantera, * Verbal permission to speak to the caregivers and representatives has been obtained from the patient. Yes * Community resources currently utilized None * Additional services required to return to the preadmission environment? Yes * Can the patient safely return to the preadmission environment? Yes * Has this patient been hospitalized within the prior 30 days at any hospital? No Coverage Notice Reviewer: [id number] Sonu Tai Notice Issued Date-Time: 01/06/2021 15:20 Notice Type: IM Discharge Notice Notice Delivered To: Patient Relationship to Patient: Supervisor [employer] Name: Delivery Method: HAND - Hand Delivered Emily Days: Prior Verbal Notification: Recipient Understood Notice: Yes Recipient Signature: Yes Med Rec Note Co-signed by Attending: Coverage Notice Comment: Reviewer: [id number] Tai Notice Issued Date-Time: 01/06/2021 15:20 Notice Type: Patient Choice Letter Notice Delivered To: Patient Relationship to Patient: Supervisor [employer] Name: Delivery Method: HAND - Hand Delivered Emily Days: Prior Verbal Notification: Recipient Understood Notice: Yes Recipient Signature: Yes Med Rec Note Co-signed by Attending: Coverage Notice Comment: kristin for care iv home health Last DP export: 01/06/21 1:27 p Patient Name: GELY DUMONT Page [id number] at 1532 All edits/amendments must be made on the electronic document DICTATION DATE: 01/06/21 1532 DROP WIRE ALINER: MEMO 01/06/21 1532 RPT#: [id number] DC DATE: STATUS: ADM IN [facility] [address] [place] [address] END OF REPORT
[2021-01-06 16:07] VITALS: BP 150/71
[2021-01-06 16:21] LABS: ANION GAP 14.2 mmol/L (8-16); CALCIUM 9.3 mg/dL (8.5-10.1); CARBON DIOXIDE 24.3 mmol/L (21.0-32.0); CREATININE - SERUM 1.4 mg/dL (0.6-1.3); POTASSIUM - SERUM 4.5 mmol/L (3.5-5.1)
--- NOTE | 2021-01-06 19:10 | NUR ---
RECEIVED REPORT, ASSUMED CARE, BREATHING EVEN UNLABORED, CALL LIGHT IN REACH, BED LOWEST POSITION, DENIES NEEDS, NO S/S OF DISTRESS NOTED, ENCOURAGED PT TO NOTIFY STAFF OF ANY NEEDS
[2021-01-06 20:07] LABS: ANION GAP 10.5 mmol/L (8-16); CARBON DIOXIDE 26.7 mmol/L (21.0-32.0); CREATININE - SERUM 1.3 mg/dL (0.6-1.3); POTASSIUM - SERUM 4.2 mmol/L (3.5-5.1)
--- NOTE | 2021-01-07 02:37 | NUR ---
I have reviewed this patient and I concur with the Shift Assessment completed by the Licensed Practical Nurse today this shift.
[2021-01-07 04:55] VITALS: BP 136/76
[2021-01-07 05:16] LABS: BASOPHILS 0.3 % (0-2); EOSINOPHILS 2.2 % (0-7); HEMATOCRIT 36.1 % (42.0-54.0); HEMOGLOBIN 12.3 g/dL (13.5-17.5); IMMATURE GRANULOCYTES 0.1 % (0-5); LYMPHOCYTE ABS# 2.23 10x3/uL (1.32-3.57); LYMPHOCYTES 31.1 % (15-50); MCH 28.3 pg (26.0-34.0); MCHC 34.1 g/dL (31.0-37.0); MEAN PLATELET VOLUME 12.3 fL (7.4-10.4); MONOCYTES 8.2 % (2-11); NEUTROPHIL ABS# 4.16 10x3/uL (1.78-5.38); NEUTROPHILS 58.1 % (40-80); PLATELET COUNT 212 10x3/uL (130-400); RBC 4.35 10x6/uL (4.20-6.10); WBC 7.2 10x3/uL (4.8-10.8)
[2021-01-07 05:26] LABS: CALC OSMOLALITY 275 mosm/kg (275-300); CALCIUM 8.8 mg/dL (8.5-10.1); CARBON DIOXIDE 26.8 mmol/L (21.0-32.0); CHLORIDE - SERUM 105 mmol/L (98-107); GLUCOSE 86 mg/dL (74-106); MAGNESIUM - SERUM 1.6 mg/dL (1.8-2.4); PHOSPHOROUS 3.9 mg/dL (2.5-4.9); SODIUM 139 mmol/L (136-145); UREA NITROGEN 11 mg/dL (7-18); eGFR NON AFRICAN AMERICAN 76 mL/min (90-120)
--- NOTE | 2021-01-07 07:27 | NUR ---
DC EDUCATION PROVIDED BOTH WRITTEN AND VERBAL. VERBALIZED UNDERSTANDING. DENIES FURTHER QUESTIONS. BLOOD SUGAR THIS AM 86. PATIENT DENIES NEEDS. IV REMOVED FROM LFA WITH TIP INTACT. PATIENT STATES WILL CALL INS[employer] TO LICENSED INVESTMENT SALES ASSISTANT AFTER BREAKFAST.
--- NOTE | 2021-01-07 08:30 | NUR ---
ALERT AND ORIENTED. ASSESSMENT COMPLETE. BED LOW. CALL ROLLE AND PERSONAL ITEMS IN REACH. WILL CONTINUE TO MONITOR.
--- NOTE | 2021-01-07 08:51 | NUR ---
CLARIFIED WITH AAKASH FROM CASE MANAGEMENT THAT PATIENT OK TO DC HOME AND HOME HEALTH HAS BEEN SET UP. PATIENT'S SDC TEACHER ON WAY TO HOSPITAL TO MANAGER OF DRILLING PATIENT.
--- NOTE | 2021-01-07 10:30 | NUR ---
PATIENT DC HOME WITH MANGLE TENDER CLOTH WITH ALL BELONGINGS.
--- NOTE | 2021-01-09 08:21 | MORECARE ---
CASE MANAGEMENT DISCHARGE SUMMARY PATIENT: GELY DUMONT UNIT: [id number] ADM DATE: 01/01/21 AGE: 85 : 36 SEX: M ROOM/BED: D.2206 AUTHOR: HAYDE,DOC PHYSICIAN: REFERRING PHYSICIAN: MIMI MICHAUD MD DATE OF SERVICE: 01/09/21 Discharge Plan Patient Name: GELY DUMONT Facility: [facility]:[place] : 1935 Planned Disposition: Inpatient Rehab Anticipated Discharge Date: Discharge Date: 01/07/2021 Expected LOS: Initial Reviewer: [email or web address] Initial Review Date: 01/05/2021 Generated: 01/09/21 9:20 am Comments DCP- Discharge Planning Updated by [email or web address]: Jayshree Tai on 01/06/21 1:[address] Patient will be discharged home tonight or tomorrow with home health when glucose is under 200. imm served and explained and kristin signed and placed in chart CM to follow as needed DCP- Discharge Planning Updated by [id number]: Jayshree Tai on 01/06/21 11:[address] PATIENT HAS BEEN DENIED INPATIENT REHAB AND DOES NOT WANT TO GO TO A SKILLED FACILITY HE WOULD LIKE TO GO HOME WITH HOME HEALTH, HE DOES NOT CARE WHAT HOME HEALTH COMPANY HE USES LONG THEY TAKE HIS INSURANCE HE HAS A CANE AT THE BEDSIDE. DCP- Discharge Planning Updated by [email or web address]: Paula Montesinos on 01/05/21 1:[address] Patient Name: GELY DUMONT Admission Status: ER Accout number: [id number] Admission Date: 01-01-2021 : 1935 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 CM discussed availability of home health, rehab services, and medical equipment. Patient states he wants to DC to home. Patient lives at home alone. States home environment is safe. CM informed patient that physical therapy has recommended inpatient rehab. Patient in agreement with plan to DC to [facility]. KRISTIN signed. Copy in chart. Patient denies any other needs at this time. CM obtained order for OT eval. Notified Tory Dennis in therapy department. CM notified Nichelle Nandini at [facility] of referral. CM will continue to follow and assist as needed with discharge planning needs. Gasoline Dragline Operator: Paula Montesinos DCPIA - Discharge Planning Initial Assessment Updated by [email or web address]: Paula Montesinos on 01/05/21 3:29 pm * Is the patient Alert and Oriented? Yes * How many steps to enter\exit or inside your home? * PCP Amy * Pharmacy [facility] [address] * Preadmission Environment Home Alone * ADLs Independent * Equipment Cane Glucometer * List name and contact numbers for known caregivers / representatives who currently or will assist patient after discharge: Pastor Pantera, * Verbal permission to speak to the caregivers and representatives has been obtained from the patient. Yes * Community resources currently utilized None * Additional services required to return to the preadmission environment? Yes * Can the patient safely return to the preadmission environment? Yes * Has this patient been hospitalized within the prior 30 days at any hospital? No Coverage Notice Reviewer: [id number] Tai Notice Issued Date-Time: 01/06/2021 15:20 Notice Type: IM Discharge Notice Notice Delivered To: Patient Relationship to Patient: Business Applications Analyst Name: Delivery Method: HAND - Hand Delivered Emily Days: Prior Verbal Notification: Recipient Understood Notice: Yes Recipient Signature: Yes Med Rec Note Co-signed by Attending: Coverage Notice Comment: Reviewer: [id number] Tai Notice Issued Date-Time: 01/06/2021 15:20 Notice Type: Patient Choice Letter Notice Delivered To: Patient Relationship to Patient: Business Applications Analyst Name: Delivery Method: HAND - Hand Delivered Emily Days: Prior Verbal Notification: Recipient Understood Notice: Yes Recipient Signature: Yes Med Rec Note Co-signed by Attending: Coverage Notice Comment: kristin for care iv home health Last DP export: 01/06/21 1:32 p Patient Name: GELY DUMONT Page [id number] at 0821 All edits/amendments must be made on the electronic document DICTATION DATE: 01/09/21819 EDGE SANDER: MEMO 01/09/21819 RPT#: [id number] DC DATE:01/07/21 STATUS: DIS IN [facility] [address] [facility] [place] [address] END OF REPORT
== END 2021-01-07 10:30 | disposition home health service (06) | DRG 637 ==
LOC: D.ER 10:59 → D.MS 14:08 → D.ICU 14:08 → D.CVICU 14:08 → D.EDHOLD 14:08 → D.ICU 14:12 → D.CVICU 01-02 19:00 → D.MS 01-03 16:16
PROVIDERS: Family Medicine; ADMIT Emergency Medicine; ATTEND Emergency Medicine
DX: E11.00 Type 2 diabetes mellitus with hyperosmolarity without nonketotic hyperglycemic-hyperosmolar coma (NKHHC) (principal); G93.41 Metabolic encephalopathy; N17.9 Acute kidney failure, unspecified; E11.65 Type 2 diabetes mellitus with hyperglycemia; I10 Essential (primary) hypertension; E78.5 Hyperlipidemia, unspecified; Z79.84 Long term (current) use of oral hypoglycemic drugs